=== PATIENT | female | born 1965 | race Caucasian/White ===

== ENCOUNTER 2024-08-14 23:41 | Emergency (ER) | payer BC ==
--- NOTE | 2024-08-15 00:35 | ED ---
General Adult HPI - General Chief complaint: Seizure Stated complaint: Seizure Time Seen by Provider: 08/14/24 23:59 Source: EMS Mode of arrival: EMS - History of Present Illness Initial comments: Patient is a 59-year-old female the past medical history of prior CVA on Coumadin, seizures on Keppra presenting today for seizure at home. Patient's states that he had called her as he was leaving work this evening about an hour prior to arriving home and patient was tearful because she had forgotten her medications this morning including her Keppra. Patient was told to hold her morning Keppra so that she could have a Keppra level drawn but that did not end up happening today and she did not end up taking her Keppra. Patient's arrived home to find the patient having seizure-like activity on the couch, this happened about twice more by the time EMS arrived. En route to the ER patient had another seizure like episodes he was given 5 mg Versed. At this time patient is AO x 4 and returned to baseline. She denies any chest pain, shortness of breath, recent fevers or chills, dizziness, abdominal pain, nausea, vomiting, changes in vision new numbness or weakness. Patient has left-sided weakness from a prior stroke. Denies alcohol use. States she has had intermittent diarrhea for the last 5 days about 2 episodes a day without melena or hematochezia. - Related Data Home Medications Medication Instructions Recorded Confirmed Aspirin [Adult Low Dose Aspirin EC] 81 mg PO DAILY 03/07/18 03/07/18 Atorvastatin [Lipitor] 40 mg PO DAILY 03/07/18 03/07/18 Baclofen [Lioresal] 20 mg PO DAILY 03/07/18 03/07/18 D3/Folic Acid/Collagen,Hydroly 1,000 units PO DAILY 03/07/18 03/07/18 [Cyfolex Capsule] Potassium Citrate [Potassium 10 meq PO DAILY 03/07/18 03/07/18 Citrate ER] Warfarin [Coumadin] 5 mg PO DAILY 03/07/18 03/07/18 amLODIPine [Norvasc] 5 mg PO DAILY 03/07/18 03/07/18 levETIRAcetam [Keppra] 750 mg PO DAILY 03/07/18 03/07/18 lisinopriL [Zestril] 10 mg PO DAILY 03/07/18 03/07/18 Allergies Allergy/AdvReac Type Severity Reaction Status Date / Time No Known Allergies Allergy Verified 08/15/24 00:32 Review of Systems ROS Statement: Those systems with pertinent positive or pertinent negative responses have been documented in the HPI. ROS Other: All systems not noted in ROS Statement are negative. Past Medical History Past Medical History: Diabetes Mellitus, Hyperlipidemia, Hypertension, Seizure Disorder Additional Past Medical History / Comment(s): vitamin D deficiency, blood coagulation disorder, Stroke x2, History of Any Multi-Drug Resistant Organisms: None Reported Past Surgical History: Cholecystectomy Additional Past Surgical History / Comment(s): LS, S1 fusion back; Cholecystectomy Past Anesthesia/Blood Transfusion Reactions: No Reported Reaction Past Psychological History: No Psychological Hx Reported Past Alcohol Use History: None Reported Past Drug Use History: None Reported General Exam - General Exam Comments Initial Comments: PE: CONSTITUTIONAL: No apparent distress, well appearing SKIN: Warm, dry, no jaundice, hives or petechiae EYES: Pupils are equally round, extraocular movements intact without nystagmus, clear conjunctiva, non-icteric sclera HENT: Normocephalic, atraumatic, moist mucus membranes, oropharynx clear without exudates NECK: , Full range of motion, normal appearance PULMONARY: Clear to auscultation without wheezes, rhonchi, or rales, normal excursion, no accessory muscle use and no stridor CARDIOVASCULAR: Regular rate, rhythm, normal S1 and S2. No appreciated murmurs, rubs or gallops. Strong radial pulses with intact distal perfusion. No lower extremity edema GASTROINTESTINAL: Soft, active bowel sounds throughout, non-tender, non- distended, no palpable masses, no rebound or guarding. No hepatosplenomegaly GENITOURINARY: MUSCULOSKELETAL: Extremities have no gross deformity, no edema, redness, or swelling. No calf swelling NEUROLOGIC: [_a/o x 3, GCS 15, normal mentation and speech. 1 out of 5 strength left upper extremity, 3-5 strength left lower extremity, questionable right facial droop, states is baseline for patient, visual almendarez intact without deficits, extraocular was intact without nystagmus pupils equal round reactive to light, intact facial sensation and jaw opening, normal palate mov ement, midline uvula, No abnormal movements. Normal muscle tone. Sensation to light touch is intact bilaterally. Unable to assess cerebellar signs due to pt's baseline neuro deficits PSYCHIATRIC:_normal mood and affect, thought process is clear and linear Course Vital Signs 08/14/24 08/15/24 08/15/24 23:49 00:33 01:06 Temperature 98.1 F Pulse Rate 97 90 83 Respiratory 22 22 Rate Blood Pressure 118/64 120/76 123/72 O2 Sat by Pulse 94 L 97 98 Oximetry 08/15/24 08/15/24 02:00 03:25 Temperature 97.6 F Pulse Rate 85 83 Respiratory 20 Rate Blood Pressure 117/94 133/81 O2 Sat by Pulse 98 98 Oximetry EKG Findings - EKG Comments: EKG Findings:: Sinus rhythm, rate 98 bpm NJ interval 151 ms QT/QTc 379/435 ms, normal axis, no significant ST elevations or depressions, no arrhythmia Medical Decision Making - Medical Decision Making Was pt. sent in by a medical professional or institution (, PA, SERIALS LIBRARIAN, urgent care, hospital, or shelter...) When possible be specific @ -No Did you speak to anyone other than the patient for history (EMS, parent, family, police, friend...)? What history was obtained from this source @I spoke with patient's who provides HPI as noted above Did you review nursing and triage notes (agree or disagree)? Why? @ -I reviewed nursing and triage notes-patient given 5 mg IV Versed prior to arrival for seizure-like activity and EMS, arrives awake and alert Were old charts reviewed (outside hosp., previous admission, EMS record, old EKG, old radiological studies, urgent care reports/EKG's, shelter records)? Report findings @ -Medical records reviewed- Differential Diagnosis (chest pain, altered mental status, abdominal pain women, abdominal pain men, vaginal bleeding, weakness, fever, dyspnea, syncope, headache, dizziness, GI bleed, back pain, seizure, CVA, palpatations, mental health, musculoskeletal)? Differential Seizure: Recurrent seizure disorder, febrile seizure, alcohol withdrawal, stimulants, meningitis, encephalitis, intercranial hemorrhage, intracranial tumor, stroke, eclampsia, thyrotoxicosis, hypocalcemia, hyponatremia, hypernatremia, hypomagnesemia, psychogenic, this is not meant to be an all-inclusive list. EKG interpreted by me (3pts min.). @ -As above X-rays interpreted by me (1pt min.). @ -None done CT interpreted by me (1pt min.). @Personally reviewed CT brain, shows prior evidence of prior infarct along the right parietal region, possible right sided subdural hematoma, read by radiologist as trace subacute to chronic bilateral holohemispheric subdural hematoma more pronounced on the right, measuring up to 5 mm U/S interpreted by me (1pt. min.). @ -None done What testing was considered but not performed or refused? (CT, X-rays, U/S, labs)? Why? @ -None What meds were considered but not given or refused? Why? IV vitamin K and Kcentra were considered however patient hematomas are subacute, it is unclear if this is the cause of her seizure today, she currently has no new focal neurologic deficits, for this reason these medications were held, Dr. Augustin to discuss further w/ Neurosurgery at [facility] and will administer if recommended upon patient's arrival Did you discuss the management of the patient with other professionals (professionals i.e. , PA, SERIALS LIBRARIAN, lab, RT, psych nurse, social service coordinator, docking pilot, teacher, debt recovery officer, foster care case manager)? Give summary @Case was discussed with Dr. Augustin, [facility] ED, kindly accepts pt for transfer, will discuss with neurosurgery need for anticoagulation reversal given chronicity of imaging findings Was smoking cessation discussed for >3mins.? @ -No Was critical care preformed (if so, how long)? Yes 35-minute Were there social determinants of health that impacted care today? How? (Homelessness, low income, unemployed, alcoholism, drug addiction, transportation, low edu. Level, literacy, decrease access to med. care, senior living, rehab)? @ -No Was there de-escalation of care discussed even if they declined (Discuss DNR or withdrawal of care, Hospice)? @ -No What co-morbidities impacted this encounter? (DM, HTN, Smoking, COPD, CAD, Cancer, CVA, ARF, Chemo, Hep., AIDS, mental health diagnosis, sleep apnea, morbid obesity)? @Prior CVA on Coumadin, prior seizure on Keppra Was patient admitted / discharged? Hospital course, mention meds given and route, prescriptions, significant lab abnormalities, going to OR and other pertinent info. @Transferred [facility]-Pt is a pleasant 59-year-old female past medical history of prior CVA on Coumadin, prior seizure on Keppra presenting today for seizure-like episode at home. Patient now at baseline upon arrival to the ER. She did receive 5 mg IV Versed and EMS for seizure activity. Patient has no new focal neurologic deficits on exam, states that her left upper extremity and left lower extremity weakness as well as slight facial droop are from prior stroke and some of the weakness in her LLE is from chronic back issues as well. Plan for Keppra bolus, IV fluids, comprehensive labs, CT brain given patient last stroke was accompanied by a seizure. Pt and agreeable with POC. Labs significant for normal CBC, mild hypokalemia with potassium 3.4 for which replacement was ordered, hypomagnesemia with magnesium 1.3, troponin within normal limits. Replacement IV magnesium ordered. CT was noted to be significant for trace subacute to chronic bilateral h olohemispheric subdural hematoma more pronounced on the right measuring up to 5 mm and prior right MCA territory infarct. Patient denies recent falls or trauma within the last month. Patient will need to be transferred for neuro ICU and neurosurgical evaluation. Updated patient and to findings and plan of care. They are agreeable plan for transfer. Case was discussed with Dr. Charli Moya, ED who kindly accepted patient for transfer. On reassessment just prior to transfer pt began having twitching of her ADAM. 5 mg IV versed ordered out of concern for focal seizure. She remains awake and alert. Patient was given 5 mg IV Versed which terminated left upper extremity twitc moriah. Undiagnosed new problem with uncertain prognosis? @ -No Drug Therapy requiring intensive monitoring for toxicity (Heparin, Nitro, Insulin, Cardizem)? @ -No Were any procedures done? @ -No Diagnosis/symptom? @Subacute subdural hematoma, seizure Acute, or Chronic, or Acute on Chronic? @Acute Uncomplicated (without systemic symptoms) or Complicated (systemic symptoms)? @ -Complicated Side effects of treatment? @ -No Exacerbation, Progression, or Severe Exacerbation? @ -No Poses a threat to life or bodily function? How? (Chest pain, [place], [place], pneumonia, PE, COPD, DKA, ARF, appy, cholecystitis, CVA, Diverticulitis, Homicidal, Suicidal, threat to staff... and all critical care pts) @Yes, if left unaddressed could lead to uncontrolled hemorrhage E - Lab Data Result diagrams: 08/14/24 23:45 08/14/24 23:45 Lab Results 08/14/24 08/14/24 08/14/24 Range/Units 23:45 23:45 23:45 WBC 10.0 (3.8-10.6) k/uL RBC 4.57 (3.80-5.40) m/uL Hgb 13.6 (11.4-16.0) gm/dL Hct 41.6 (34.0-46.0) % MCV 91.1 (80.0-100.0) fL MCH 29.7 (25.0-35.0) pg MCHC 32.6 (31.0-37.0) g/dL RDW 13.0 (11.5-15.5) % Plt Count 277 (150-450) k/uL MPV 8.3 Neutrophils % 72 % Lymphocytes % 22 % Monocytes % 4 % Eosinophils % 2 % Basophils % 0 % Neutrophils # 7.2 (1.3-7.7) k/uL Lymphocytes # 2.2 (1.0-4.8) k/uL Monocytes # 0.4 (0-1.0) k/uL Eosinophils # 0.2 (0-0.7) k/uL Basophils # 0.0 (0-0.2) k/uL PT (10.0-12.5) sec INR (<1.2) APTT (22.0-30.0) sec Sodium 136 L (137-145) mmol/L Potassium 3.4 L (3.5-5.1) mmol/L Chloride 105 (98-107) mmol/L Carbon Dioxide 14 L (22-30) mmol/L Anion Gap 17 mmol/L BUN 9 (7-17) mg/dL Creatinine 0.60 (0.52-1.04) mg/dL Est GFR (CKD-EPI)AfAm >90 (>60 ml/min/1.73 sqM) Est GFR (CKD-EPI)NonAf >90 (>60 ml/min/1.73 sqM) Glucose 176 H (74-99) mg/dL POC Glucose (mg/dL) (70-110) mg/dL POC Glu Card Writer Hand ID Calcium 8.7 (8.4-10.2) mg/dL Magnesium 1.3 L (1.6-2.3) mg/dL Total Bilirubin 0.4 (0.2-1.3) mg/dL AST 23 (14-36) U/L ALT 28 (4-34) U/L Alkaline Phosphatase 92 (38-126) U/L Troponin I <0.012 (0.000-0.034) ng/mL Total Protein 6.2 L (6.3-8.2) g/dL Albumin 3.8 (3.5-5.0) g/dL Serum Alcohol <10 mg/dL 08/15/24 08/15/24 Range/Units 00:42 03:24 WBC (3.8-10.6) k/uL RBC (3.80-5.40) m/uL Hgb (11.4-16.0) gm/dL Hct (34.0-46.0) % MCV (80.0-100.0) fL MCH (25.0-35.0) pg MCHC (31.0-37.0) g/dL RDW (11.5-15.5) % Plt Count (150-450) k/uL MPV Neutrophils % % Lymphocytes % % Monocytes % % Eosinophils % % Basophils % % Neutrophils # (1.3-7.7) k/uL Lymphocytes # (1.0-4.8) k/uL Monocytes # (0-1.0) k/uL Eosinophils # (0-0.7) k/uL Basophils # (0-0.2) k/uL PT 18.9 H (10.0-12.5) sec INR 1.9 H (<1.2) APTT 21.8 L (22.0-30.0) sec Sodium (137-145) mmol/L Potassium (3.5-5.1) mmol/L Chloride (98-107) mmol/L Carbon Dioxide (22-30) mmol/L Anion Gap mmol/L BUN (7-17) mg/dL Creatinine (0.52-1.04) mg/dL Est GFR (CKD-EPI)AfAm (>60 ml/min/1.73 sqM) Est GFR (CKD-EPI)NonAf (>60 ml/min/1.73 sqM) Glucose (74-99) mg/dL POC Glucose (mg/dL) 140 H (70-110) mg/dL POC Glu Card Writer Hand IVORY DIAZ Calcium (8.4-10.2) mg/dL Magnesium (1.6-2.3) mg/dL Total Bilirubin (0.2-1.3) mg/dL AST (14-36) U/L ALT (4-34) U/L Alkaline Phosphatase (38-126) U/L Troponin I (0.000-0.034) ng/mL Total Protein (6.3-8.2) g/dL Albumin (3.5-5.0) g/dL Serum Alcohol mg/dL Disposition Clinical Impression: Seizure, Subacute subdural hematoma Disposition: OTHER INSTITUTION NOT DEFINED Condition: Stable Referrals: Ty Hammer DO [Primary Care Provider] - 1-2 days - Out of Hospital Transfer - Req. Specs Out of Hospital Transfer - Requested Specifics: Other Emergency Center ([facility])
[2024-08-15 00:43] LABS: Glucose,Whole Blood 140 mg/dL (70-110)
[2024-08-15 00:55] LABS: AST 23 U/L (14-36); African American GFR (CKD) >90 (>60 ml/min/1.73 sqM); Albumin 3.8 g/dL (3.5-5.0); Alcohol <10 mg/dL; Alkaline Phosphatase 92 U/L (38-126); Anion Gap 17 mmol/L; Blood Urea Nitrogen 9 mg/dL (7-17); Calcium 8.7 mg/dL (8.4-10.2); Carbon Dioxide 14 mmol/L (22-30); Chloride 105 mmol/L (98-107); Glucose 176 mg/dL (74-99); Magnesium 1.3 mg/dL (1.6-2.3); Non-African American GFR(CKD) >90 (>60 ml/min/1.73 sqM); Potassium 3.4 mmol/L (3.5-5.1); Sodium 136 mmol/L (137-145); Total Bilirubin 0.4 mg/dL (0.2-1.3); Total Protein 6.2 g/dL (6.3-8.2)
[2024-08-15 01:06] LABS: Basophils % (A) 0 %; Eosinophils # (A) 0.2 k/uL (0-0.7); Eosinophils % (A) 2 %; HCT 41.6 % (34.0-46.0); HGB 13.6 gm/dL (11.4-16.0); Lymphocytes # (A) 2.2 k/uL (1.0-4.8); Lymphocytes % (A) 22 %; MCH 29.7 pg (25.0-35.0); MCHC 32.6 g/dL (31.0-37.0); MCV 91.1 fL (80.0-100.0); Mean Platelet Volume 8.3; Monocytes # (A) 0.4 k/uL (0-1.0); Monocytes % (A) 4 %; Neutrophils # (A) 7.2 k/uL (1.3-7.7); Neutrophils % (A) 72 %; Platelet Count 277 k/uL (150-450); RBC 4.57 m/uL (3.80-5.40)
[2024-08-15 01:07] LABS: ALT 28 U/L (4-34)
[2024-08-15] MEDS: SODIUM CHLORIDE 0.9% 500 ML 500 ML IV STA (01:07)
[2024-08-15] MEDS: levETIRAcetam IV 500 MG/5 ML VIAL IVP STA (01:09)
[2024-08-15] MEDS ORDERED: POTASSIUM BICARBONATE/CIT AC 20 MEQ TABLET.EFF PO ONE (02:45)
--- NOTE | 2024-08-15 02:56 | CT ---
EXAM: CT Head Without Intravenous Contrast CLINICAL HISTORY: ITS.REASON CT Reason: seizure activity, had seizure w last stroke TECHNIQUE: Axial computed tomography images of the head/brain without intravenous contrast. CTDI is 49.1 mGy and DLP is 1156.4 mGy-cm. This CT exam was performed using one or more of the following dose reduction techniques: automated exposure control, adjustment of the mA and/or kV according to patient size, and/or use of iterative reconstruction technique. COMPARISON: No relevant prior studies available. FINDINGS: Brain: Trace subacute to chronic bilateral holohemispheric subdural hematoma, more pronounced on the right measuring up to 5 mm. Prior right MCA territory infarct. Ventricles: No hydrocephalus. Bones/joints: Unremarkable. Soft tissues: Unremarkable. Sinuses: No air fluid level. Mastoid air cells: Clear. IMPRESSION: Trace subacute to chronic bilateral holohemispheric subdural hematoma, more pronounced on the right measuring up to 5 mm. <MYCVCSECTION> Communications: 08/15/24 03:02 Verify Receipt Verified receipt with Helen for Dr. Bryson on 08/15 03:02 (-04:00)
[2024-08-15] MEDS ORDERED: ACETAMINOPHEN TAB 500 MG TAB PO STA (03:26)
[2024-08-15 03:33] VITALS: BP 133/81; PULSE 83; RESP 20; TEMP 97.6
[2024-08-15] MEDS: MIDAZOLAM 1 MG/ML 5 ML VIAL IV STA (03:34)
[2024-08-15] MEDS: MAGNESIUM SULFATE-D5W PMX 1 GM in DEXTROSE/WATER 1 100ML.BAG IVPB SCH (03:50)
[2024-08-15 03:55] LABS: INR 1.9 (<1.2); Prothrombin Time 18.9 sec (10.0-12.5)
[2024-08-15 04:15] LABS: Partial Thromboplastin Time 21.8 sec (22.0-30.0)
== END 2024-08-15 03:55 | disposition other institution (70) ==
LOC: EC 23:41
DX: I62.02 Nontraumatic subacute subdural hemorrhage (principal); G40.909 Epilepsy, unspecified, not intractable, without status epilepticus; Z86.73 Personal history of transient ischemic attack (TIA), and cerebral infarction without residual deficits; Z79.01 Long term (current) use of anticoagulants
CPT/HCPCS: 36415 ×2; 93005; 80053; 83735; 84484; 85025; 85610; 85730; 80320; 70450; 99285; 96374; 96375 ×2; J2250; J3475; J1953